=== PATIENT | female | born 1975 | race Caucasian/White ===

== ENCOUNTER 2017-12-24 07:39 | Outpatient (CLI) | payer MEDICAID ==
[2018-01-29] MEDS ORDERED: PROTONIX40 MG PO (12:55)
[2018-01-29] MEDS ORDERED: PREMARIN0.9 MG PO (12:55)
[2018-01-29] MEDS ORDERED: KLONOPIN0.5 MG PO (12:56)
[2018-02-01 19:06] VITALS: BMI 20.6
== END 2017-12-24 09:30 ==
LOC: D.OPS 07:39
DX: K21.9 Gastro-esophageal reflux disease without esophagitis (principal); K44.9 Diaphragmatic hernia without obstruction or gangrene; K22.70 Barrett's esophagus without dysplasia

== ENCOUNTER 2018-02-01 07:34 | Day surgery (SDC) | payer MEDICAID ==
[~2018-02-01] VITALS: Ht 154.9 cm; Wt 49.5 kg
[~2018-02-01 07:34] MED LIST: KLONOPIN0.5 MG PO; PREMARIN0.9 MG PO; PROTONIX40 MG PO
[2018-02-01 08:05] LABS: HEMATOCRIT 37.8 % (36.0-48.0); HEMOGLOBIN 12.9 g/dL (12-16); MCH 32.5 pg (26.0-34.0); MCHC 34.1 g/dL (31.0-37.0); MCV 95.2 fL (80.0-100.0); MEAN PLATELET VOLUME 9.6 fL (7.4-10.4); RBC 3.97 10x6/uL (4.00-5.40); RDW 12.8 % (11.5-14.5); WBC 7.4 10x3/uL (4.8-10.8)
[2018-02-01 08:38] VITALS: BP 93/64; BMI 20.8
[2018-02-01 13:16] VITALS: BP 96/58
[2018-02-01 19:06] VITALS: BP 96/58; Ht 154.9 cm; Wt 49.5 kg
[2018-02-01 20:47] VITALS: BP 100/60
[2018-02-01 23:56] VITALS: BP 108/59
[2018-02-02 04:35] VITALS: BP 85/50
[2018-02-02 06:12] LABS: BASOPHILS 0.1 % (0-2); EOSINOPHILS 0.5 % (0-7); HEMATOCRIT 31.8 % (36.0-48.0); HEMOGLOBIN 10.6 g/dL (12-16); IMMATURE GRANULOCYTES 0.2 % (0-5); MCH 31.5 pg (26.0-34.0); MCHC 33.3 g/dL (31.0-37.0); MCV 94.4 fL (80.0-100.0); MONOCYTES 3.7 % (2-11); NEUTROPHILS 84.5 % (40-80); PLATELET COUNT 234 10x3/uL (130-400); RBC 3.37 10x6/uL (4.00-5.40); RDW 12.6 % (11.5-14.5); WBC 8.9 10x3/uL (4.8-10.8)
[2018-02-02 06:34] LABS: ALBUMIN 2.8 g/dL (3.4-5.0); ALKALINE PHOSPHATASE 42 U/L (46-116); ALT (SGPT) 128 U/L (10-68); BILIRUBIN - TOTAL 0.33 mg/dL (0.2-1.3); CALC OSMOLALITY 279 mosm/kg (275-300); CALCIUM 8.3 mg/dL (8.5-10.1); CARBON DIOXIDE 26.6 mmol/L (21.0-32.0); CHLORIDE - SERUM 105 mmol/L (98-107); CREATININE - SERUM 0.6 mg/dL (0.6-1.3); GLUCOSE 109 mg/dL (74-106); SODIUM 141 mmol/L (136-145); UREA NITROGEN 8 mg/dL (7-18); eGFR NON AFRICAN AMERICAN > 90 mL/min (90-120)
[2018-02-02] MEDS ORDERED: MEPERIDINE HCL50 MG PO (09:09)
[2018-02-02] MEDS ORDERED: ZOFRAN ODT4 MG/UDTAB PO (09:09)
[2018-02-02 09:19] VITALS: BP 123/88
[2018-02-02 13:07] VITALS: BP 103/70
== END 2018-02-02 13:44 | disposition home or self-care (01) ==
LOC: D.OPS 07:34 → D.PAN 08:30 → D.OPS 10:00 → D.MS 12:46 → D.OPS 23:52 → D.MS 23:53 → D.OPS 23:53 → D.MS 02-02 13:44
PROVIDERS: Anesthesiology; Surgery
PROC: 0DV44CZ Restriction of Esophagogastric Junction with Extraluminal Device, Percutaneous Endoscopic Approach (ICD-10-PCS; principal; 2018-02-01 10:00)
PROC: 0BQT4ZZ Repair Diaphragm, Percutaneous Endoscopic Approach (ICD-10-PCS; 2018-02-01 10:00)
DX: K21.9 Gastro-esophageal reflux disease without esophagitis (principal); K44.9 Diaphragmatic hernia without obstruction or gangrene; K22.70 Barrett's esophagus without dysplasia

== ENCOUNTER → 2018-02-25 11:24 | Outpatient (CLI) | payer MEDICAID ==
[2018-02-01 19:06] VITALS: BMI 20.6
[~2018-02-25 11:24] MED LIST changes: +MEPERIDINE HCL50 MG PO; +ZOFRAN ODT4 MG/UDTAB PO
[2018-02-25 11:49] LABS: BASOPHILS 0.7 % (0-2); EOSINOPHILS 2.7 % (0-7); HEMATOCRIT 34.7 % (36.0-48.0); HEMOGLOBIN 12.3 g/dL (12-16); IMMATURE GRANULOCYTES 0.1 % (0-5); LYMPHOCYTES 38.7 % (15-50); MCH 32.6 pg (26.0-34.0); MCHC 35.4 g/dL (31.0-37.0); MEAN PLATELET VOLUME 9.1 fL (7.4-10.4); MONOCYTES 4.6 % (2-11); NEUTROPHILS 53.2 % (40-80); PLATELET COUNT 275 10x3/uL (130-400); RBC 3.77 10x6/uL (4.00-5.40); RDW 12.6 % (11.5-14.5); WBC 7.4 10x3/uL (4.8-10.8)
[2018-02-25 12:22] LABS: CALC OSMOLALITY 275 mosm/kg (275-300); CARBON DIOXIDE 27.3 mmol/L (21.0-32.0); CHLORIDE - SERUM 102 mmol/L (98-107); CREATININE - SERUM 0.8 mg/dL (0.6-1.3); GLUCOSE 115 mg/dL (74-106); POTASSIUM - SERUM 3.4 mmol/L (3.5-5.1); SODIUM 138 mmol/L (136-145); UREA NITROGEN 10 mg/dL (7-18); eGFR NON AFRICAN AMERICAN 82 mL/min (90-120)
== END | disposition home or self-care (01) ==
LOC: D.LAB 11:15 → D.CT 11:30
PROVIDERS: Surgery
DX: K21.9 Gastro-esophageal reflux disease without esophagitis (principal)

== ENCOUNTER → 2018-03-15 10:52 | Outpatient (CLI) | payer MEDICAID ==
[2018-02-01 19:06] VITALS: BMI 20.6
== END | disposition home or self-care (01) ==
LOC: D.NM 10:52
DX: R14.3 Flatulence (principal); R14.0 Abdominal distension (gaseous); R10.84 Generalized abdominal pain; R19.7 Diarrhea, unspecified

== ENCOUNTER → 2018-06-30 08:22 | Day surgery (SDC) | payer MEDICAID ==
[~2018-06-30] VITALS: Ht 157.5 cm; Wt 44.9 kg
--- NOTE | ~2018-06-30 | OP ---
PATIENT NAME: DELIO PATEL MEDICAL RECORD: [id number] :71 LOCATION:D.OPS ADMISSION DATE: SURGEON: ABEBA GARSIA MD DATE OF OPERATION: 06/30/2018 SURGEON: Abeba Garsia MD GYNECOLOGICAL ASSISTANT: Jordyn Rocha APN PREOPERATIVE DIAGNOSES: 1. Gastroparesis. 2. Delayed gastric emptying. 3. Figueroa esophagus. 4. History of laparoscopic hiatal hernia repair and LINX procedure. PROCEDURE PERFORMED: Laparoscopic removal of LINX device. PREOPERATIVE DIAGNOSES: 1. Gastroparesis. 2. Delayed gastric emptying. 3. Figueroa esophagus. 4. History of laparoscopic hiatal hernia repair and LINX procedure. ANESTHESIA: General. COMPLICATIONS: None. SPECIMENS: LINX device. ESTIMATED BLOOD LOSS: 75 cc. Case was clean. OPERATIVE COURSE: After consent was obtained, the patient was taken to the operating room and placed in the supine position on the operating table. Next, general anesthesia was given via endotracheal intubation after a timeout was performed to confirm the correct patient and procedure. The abdomen was prepped and draped in typical sterile fashion. Local anesthetic was injected just above the umbilicus. A stab incision was made with 11-blade scalpel. Using an 11-mm bladeless optical trocar, the abdomen was entered under direct laparoscopic vision. Adequate pneumoperitoneum was achieved. The abdominal cavity was inspected. No evidence of bile injury, no evidence of bleeding. Laparoscopic lysis of adhesions was performed. After the remaining trocars were placed, two 5-mm trocars in the right lateral quadrant, one 5 mm on the left lateral quadrant, Norman liver retractor in the subxiphoid position, the left lobe of the liver was retracted with the Norman liver retractor. Dissection was continued using sharp scissor dissection and electrocautery along the posterior surface of the liver and the anterior surface of the stomach until a clear plane was identified. The LINX device was identified. The capsule was opened using electrocautery. The remaining portion was dissected using blunt [place] dissection and sharp scissor dissection. The band was unclasped. The band was then pulled through the capsule and sent for permanent pathology. The area was copiously irrigated and suctioned. Surgicel was applied. The abdominal cavity was copiously irrigated and suctioned. No evidence of bile injury, no evidence of bleeding. At this time, all remaining instruments were removed. The abdomen OPERATIVE REPORT [id number] DELIO PATEL was desufflated. Trocars were removed. At the end of the case, all needle and instrument counts were correct. No complications occurred. The patient was extubated and transferred to the PACU in stable condition. TRANSINT:[id number] Voice Confirmation ID: [id number] DOCUMENT ID: [id number] ABEBA GARSIA MD at 1526 CC: [id number] DICTATION DATE: 06/30/18 1347 CUSTOMER CARE ASSISTANT: 06/30/18 1401 [facility] [address] [id number]
[~2018-06-30 08:22] MED LIST changes: +PHENERGAN25 M1 PO; +REMERON15 MG PO
[2018-06-30 08:53] LABS: HEMATOCRIT 38.3 % (36.0-48.0); HEMOGLOBIN 13.4 g/dL (12-16); MCH 32.1 pg (26.0-34.0); MCV 91.8 fL (80.0-100.0); MEAN PLATELET VOLUME 10.1 fL (7.4-10.4); RBC 4.17 10x6/uL (4.00-5.40); RDW 12.8 % (11.5-14.5); WBC 8.9 10x3/uL (4.8-10.8)
[2018-06-30 09:55] VITALS: BP 96/61; Ht 157.5 cm; Wt 44.9 kg
== END | disposition home or self-care (01) ==
LOC: D.OPS 08:22 → D.PAN 12:00 → D.OPS 19:28 → D.MS 19:28
PROVIDERS: Anesthesiology
DX: K31.84 Gastroparesis (principal); K30 Functional dyspepsia; K22.70 Barrett's esophagus without dysplasia; Z01.812 Encounter for preprocedural laboratory examination